=== PATIENT | male | born 2000 ===

== ENCOUNTER 2023-12-24 11:48 | Emergency (ER) | payer SELFPAY ==
[2023-12-24] MEDS: Acetaminophen 500 MG Tab PO ONE (12:03)
== END 2023-12-24 12:10 | disposition home or self-care (01) ==
LOC: DL.ED 11:48
DX: S09.90XA Unspecified injury of head, initial encounter (principal); Z91.018 Allergy to other foods; X58.XXXA Exposure to other specified factors, initial encounter
CPT/HCPCS: 99283; A9270